=== PATIENT | male | born 1950 | race Caucasian/White ===

== ENCOUNTER 2017-11-17 16:44 | Inpatient (IN) | payer OTHER ==
[2017-11-17 20:28] VITALS: BMI 25.8
--- NOTE | 2017-11-17 21:05 | HP ---
CIWA Score - CIWA Score Nausea/Vomitin-No Nausea/No Vomiting Muscle Tremors: 2 Anxiety: 2 Agitation: 3 Paroxysmal Sweats: No Perspiration Orientation: 0-Oriented Tacttile Disturbances: 1-Very Mild Itch/Numbness Auditory Disturbances: 0-None Visual Disturbances: 0-None Headache: 0-None Present CIWA-Ar Total Score: 8 Admission ROS BHS - HPI Chief Complaint: alcohol withdrawal symptoms Allergies/Adverse Reactions: Allergies Allergy/AdvReac Type Severity Reaction Status Date / Time acetaminophen AdvReac Difficulty Verified 11/17/17 21:17 [From Tylenol-Codeine] Breathing codeine AdvReac Difficulty Verified 11/17/17 21:17 [From Tylenol-Codeine] Breathing History of Present Illness: 67 yo male with hx of alcohol dependence is here seeking detox for the first times. Patient was referred [facility] In assisted living Denies any prior detox. PMHX: HTN, hyperlipidemia, OA hands, abnormality of gait, depression, PTSD and insomnia. Denies suicidal / homicidal ideation or hx of suicide attempt . Exam Limitations: No Limitations - Ebola screening Have you traveled outside of the country in the last 21 days: No Have you had contact with anyone from an Ebola affected area: No Have you been sick,other than usual withdrawal symptoms: No Do you have a fever: No - Review of Systems Constitutional: Loss of Appetite, Changes in sleep, Unintentional Wgt. Loss (5 lbs) EENT: reports: No Symptoms Reported, Other (hx sx for left retinal detactment) Respiratory: reports: No Symptoms reported Cardiac: reports: No Symptoms Reported GI: reports: Poor Appetite, Poor Fluid Intake : reports: No Symptoms Reported Musculoskeletal: reports: Back Pain Integumentary: reports: No Symptoms Reported Neuro: reports: Unsteady Gait Endocrine: reports: Increased Thirst Psychiatric: reports: Orientated x3, Anxious Other Systems: Reviewed and Negative Patient History - Patient Medical History Hx Anemia: No Hx Asthma: No Hx Chronic Obstructive Pulmonary Disease (COPD): No Hx Cancer: No Hx Cardiac Disorders: No Hx Congestive Heart Failure: No Hx Hypertension: Yes Hx Hypercholesterolemia: No Hx Pacemaker: No HX Cerebrovascular Accident: Yes (3 years ago ) Hx Seizures: No Hx Dementia: No Hx Diabetes: No Hx Gastrointestinal Disorders: No Hx Liver Disease: No Hx Genitourinary Disorders: No Hx Sexually Transmitted Disorders: No Hx Renal Disease (ESRD): No (kidney stones) Hx Thyroid Disease: No Hx Human Immunodeficiency Virus (HIV): No (declines testing ) Hx Hepatitis C: No Hx Depression: Yes Hx Suicide Attempt: No Hx Bipolar Disorder: No Hx Schizophrenia: No Other Medical History: PTSD and Anxiety - Patient Surgical History Past Surgical History: Yes Hx Neurologic Surgery: No Hx Cataract Extraction: No Hx Cardiac Surgery: No Hx Lung Surgery: No Hx Breast Surgery: No Hx Breast Biopsy: No Hx Abdominal Surgery: No Hx Appendectomy: Yes Hx Cholecystectomy: No Hx Genitourinary Surgery: No Hx Section: No Hx Orthopedic Surgery: Yes (right knee replacement ) Other Surgical History: inguinal hernia b/l, Left retinal detachment laser sx - PPD History Previous Implant?: No Documented Results: Negative w/o proof PPD to be Administered?: Yes - Smoking Cessation Smoking history: Former smoker Have you smoked in the past 12 months: No Hx Chewing Tobacco Use: No (quit smoking 15 years ) Initiated information on smoking cessation: No - Substance & Tx. History Hx Alcohol Use: Yes Hx Substance Use: Yes Substance Use Type: Alcohol Hx Substance Use Treatment: No - Substances Abused Alcohol Route: Oral Frequency: 3-6 times per week Amount used: 2 x 6 pack beer Family Disease History - Family Disease History Family Disease History: [place]: Father (, 50s), Mother (, 60s), Other : Father, Mother Admission Physical Exam BHS - Vital Signs Vital Signs: Vital Signs - 24 hr 11/17/17 20:27 Temperature 97.6 F Pulse Rate 81 Respiratory 18 Rate Blood Pressure 132/70 - Physical General Appearance: Yes: Nourished, Appropriately Dressed, Thin, Anxious HEENTM: Yes: EOMI, Hearing grossly Normal, Normal ENT Inspection, Normocephalic , Normal Voice, GALE, Pharynx Normal, Tm's normal Respiratory: Yes: Chest Non-Tender, Lungs Clear, Normal Breath Sounds, No Respiratory Distress, No Accessory Muscle Use Neck: Yes: Within Normal Limits Breast: Yes: Breast Exam Deferred Cardiology: Yes: Regular Rhythm, Regular Rate Abdominal: Yes: Normal Bowel Sounds, Non Tender, Flat, Soft Genitourinary: Yes: Within Normal Limits Back: Yes: Normal Inspection Musculoskeletal: Yes: full range of Motion, Pelvis Stable, Other (use rollator walker for ambulation) Extremities: Yes: Normal Capillary Refill, Normal Inspection, Normal Range of Motion, Non-Tender Neurological: Yes: acid tank liner II-XII NML intact, Fully Oriented, Alert, Motor Strength 5/5, Depressed Affect Integumentary: Yes: Normal Color, Warm, Moist Lymphatic: Yes: Within Normal Limits - Diagnostic (1) Alcohol dependence with withdrawal Current Visit: Yes Status: Acute (2) Depression Current Visit: Yes Status: Acute Qualifiers: Depression Type: unspecified Qualified Code(s): F32.9 - Major depressive disorder, single episode, unspecified (3) Insomnia Current Visit: Yes Status: Chronic Qualifiers: Insomnia type: unspecified Qualified Code(s): G47.00 - Insomnia, unspecified (4) Gait abnormality Current Visit: Yes Status: Chronic (5) Hypertension Current Visit: Yes Status: Chronic Qualifiers: Hypertension type: essential hypertension Qualified Code(s): I10 - Essential (primary) hypertension (6) Hyperlipidemia Current Visit: Yes Status: Chronic Qualifiers: Hyperlipidemia type: unspecified Qualified Code(s): E78.5 - Hyperlipidemia , unspecified (7) Arthritis Current Visit: Yes Status: Chronic Cleared for Admission [facility] - Detox or Rehab [facility] Level of Care: Medically Supervised Detox Regimen/Protocol: Librium [facility] Breath Alcohol Content Breath Alcohol Content: 0.092 Urine Drug Screen - Results Drug Screen Negative: Yes
[2017-11-17] MEDS ORDERED: MAGNESIUM CITRATE 300 ML BOTTLE PO PRN (21:15)
[2017-11-17] MEDS ORDERED: P-EPHED 60MG/TRIPROLIDI 2.5MG TABLET PO PRN (21:15)
[2017-11-17] MEDS ORDERED: MENTHOL/PHENOL 1 EACH UD MM PRN (21:15)
[2017-11-17] MEDS ORDERED: IBUPROFEN 400 MG TABLET (FP) PO PRN (21:15)
[2017-11-17] MEDS ORDERED: ACETAMINOPHEN 325 MG TABLET (FP) PO PRN (21:15)
[2017-11-17] MEDS ORDERED: chlordiazePOXIDE HCL 25 MG CAPSULE PO PRN (21:15)
[2017-11-17] MEDS ORDERED: guaiFENesin/D-METHORPHAN HB 10 ML UNIT-DOSE CUPS PO PRN (21:15)
[2017-11-17] MEDS ORDERED: LOPERAMIDE HCL 2 MG CAPSULE PO PRN (21:15)
[2017-11-17] MEDS ORDERED: MAG HYDROX/AL HYDROX/SIMETH 30 ML UNIT-DOSE CUP PO PRN (21:15)
[2017-11-17] MEDS ORDERED: MAGNESIUM HYDROX 2400MG/30ML ORAL SUSPENSION 30 ML CUP PO PRN (21:15)
[2017-11-17] MEDS ORDERED: MELATONIN 5 MG TABLETS PO PRN (22:00)
[2017-11-17] MEDS: chlordiazePOXIDE HCL 25 MG CAPSULE PO SCH (23:15)
[2017-11-17] MEDS: THIAMINE HCL 100 MG TABLET (FP) PO SCH (23:16)
[2017-11-18] MEDS: chlordiazePOXIDE HCL 25 MG CAPSULE PO SCH ×4 (05:22→22:15)
--- NOTE | 2017-11-18 09:39 | EKG ---
Test Reason : Blood Pressure : / mmHG Vent. Rate : 076 BPM Atrial Rate : 076 BPM P-R Int : 134 ms QRS Dur : 088 ms QT Int : 416 ms P-R-T Axes : 062 061 -53 degrees QTc Int : 468 ms NORMAL SINUS RHYTHM WITH SINUS ARRHYTHMIA POSSIBLE INFERIOR INFARCT (CITED ON OR BEFORE 17-NOV-2017) ABNORMAL ECG WHEN COMPARED WITH ECG OF 17-NOV-2017 22:52, NO SIGNIFICANT CHANGE WAS FOUND Confirmed by RONAL PAYNE MD ([id number]) on 11/18/2017 9:38:48 AM Referred By: Confirmed By:RONAL PAYNE MD
--- NOTE | 2017-11-18 09:41 | CONSULT ---
[facility] Psychiatric Consult - Data Date of interview: 11/18/17 Admission source: [facility] Identifying data: This is 67 yo male, divorsed, mothe rof two, living with family, ambulates with walker, with long history of Alcohol dependence, is here seeking detox for the first time. Patient reports withdrawal symptoms, HTN , hyperlipidemia, OA hands, abnormality of gait, depression, PTSD and insomnia. Denies suicidal / homicidal ideation or hx of suicide attempt Substance Abuse History: - Smoking Cessation. Smoking history: Former smoker. Have you smoked in the past 12 months: No. Hx Chewing Tobacco Use: No (quit smoking 15 years ). Initiated information on smoking cessation: No. - Substance & Tx. History. Hx Alcohol Use: Yes. Hx Substance Use: Yes. Substance Use Type: Alcohol. Hx Substance Use Treatment: No. - Substances Abused. Alcohol. Route: Oral. Frequency: 3-6 times per week. Amount used : 2 x 6 pack beer Medical History: Ambulate with walker after R. Knee replacement, HTN, HYperlipidemia, Psychiatric History: Patient reports history of PTSD, Anxiety and Depression, reports taking prior to admission: TYrazodone 50mg po qhs. Zoloft 100mg poqd Physical/Sexual Abuse/Trauma History: Denies Additional Comment: TYrazodone 50mg po qhs. Zoloft 100mg poqd Mental Status Exam - Mental Status Exam Alert and Oriented to: Person Cognitive Function: Fair Patient Appearance: Unkempt Mood: Anxious Affect: Mood Congruent Patient Behavior: Cooperative Speech Pattern: Appropriate Voice Loudness: Mildly Soft/Quiet Thought Process: Circumstantial Thought Disorder: Being Controlled Hallucinations: Denies Suicidal Ideation: Denies Homicidal Ideation: Denies Insight/Judgement: Fair Sleep: Difficulty falling asleep Appetite: Weight loss Muscle strength/Tone: Mild Hypotonicity Gait/Station: Deferred Additional Comments: TYrazodone 50mg po qhs. Zoloft 100mg poqd Psychiatric Findings - Problem List ([place] 1, 2,3) (1) Alcohol-induced mood disorder Current Visit: Yes Status: Acute (2) Alcohol dependence with withdrawal Current Visit: Yes Status: Acute (3) Depression Current Visit: Yes Status: Acute Qualifiers: Depression Type: unspecified Qualified Code(s): F32.9 - Major depressive disorder, single episode, unspecified (4) Arthritis Current Visit: Yes Status: Chronic (5) Gait abnormality Current Visit: Yes Status: Chronic (6) Hyperlipidemia Current Visit: Yes Status: Chronic Qualifiers: Hyperlipidemia type: unspecified Qualified Code(s): E78.5 - Hyperlipidemia , unspecified (7) Hypertension Current Visit: Yes Status: Chronic Qualifiers: Hypertension type: essential hypertension Qualified Code(s): I10 - Essential (primary) hypertension (8) Insomnia Current Visit: Yes Status: Chronic Qualifiers: Insomnia type: unspecified Qualified Code(s): G47.00 - Insomnia, unspecified - Initial Treatment Plan Initial Treatment Plan: TYrazodone 50mg po qhs. Zoloft 100mg poqd
[2017-11-18 09:59] LABS: CHLORIDE 101 mmol/L (98-107); POTASSIUM 3.5 mmol/L (3.5-5.1); SODIUM 141 mmol/L (136-145)
[2017-11-18 10:10] LABS: HEMOGLOBIN 14.5 GM/dL (11.7-16.9); MCH 33.8 pg (25.7-33.7); MCHC 35.4 g/dl (32.0-35.9); MEAN CELL VOLUME 95.6 fl (80-96); MEAN PLT VOLUME 8.4 fl (7.5-11.1); PLATELET COUNT 245 K/MM3 (134-434); RBC 4.29 M/mm3 (4.00-5.60); RDW 12.9 % (11.9-15.9); WHITE BLOOD COUNT 9.3 K/mm3 (4.0-10.0)
[2017-11-18] MEDS: PRENATAL VITAMINS W/ FOLIC ACID TABLET (FP) PO SCH (10:11)
[2017-11-18] MEDS: SERTRALINE HCL 50 MG TABLET (FP) PO SCH (10:12)
[2017-11-18 11:08] LABS: ALBUMIN 3.5 g/dl (3.4-5.0); ALK PHOS 87 U/L (45-117); ANION GAP 10 (8-16); BILIRUBIN,TOTAL 1.2 mg/dL (0.2-1.0); BLOOD UREA NITROGEN 8 mg/dL (7-18); CALCIUM 8.8 mg/dL (8.5-10.1); CO2 30 mmol/L (21-32); CREATININE 0.7 mg/dL (0.7-1.3); GLUCOSE,RANDOM 93 mg/dL (74-106); SGOT/AST 11 U/L (15-37); SGPT/ALT 21 U/L (12-78); TOT PROT 6.7 g/dl (6.4-8.2)
--- NOTE | 2017-11-18 11:20 | PN ---
S CIWA - CIWA Score Nausea/Vomitin Muscle Tremors: 2 Anxiety: 1-Mildly Anxious Agitation: 1-Slight > Activity Paroxysmal Sweats: 3 Orientation: 0-Oriented Tacttile Disturbances: 1-Very Mild Itch/Numbness Auditory Disturbances: 0-None Visual Disturbances: 0-None Headache: 0-None Present CIWA-Ar Total Score: 10 S Progress Note (SOAP) Subjective: interrupted sleep, sweats, Objective: 11/18/17 11:16 Vital Signs Temperature 96.8 F L 11/18/17 09:36 Pulse Rate 91 H 11/18/17 09:36 Respiratory Rate 20 11/18/17 09:36 Blood Pressure 138/85 11/18/17 09:36 O2 Sat by Pulse Oximetry (%) Laboratory Tests 11/18/17 11/18/17 06:40 06:40 WBC 9.3 RBC 4.29 Hgb 14.5 Hct 41.0 MCV 95.6 MCH 33.8 H MCHC 35.4 RDW 12.9 Plt Count 245 MPV 8.4 Sodium 141 Potassium 3.5 Chloride 101 pending labs pt aox3 in nad ambulating with walker Assessment: 11/18/17 11:17 withdrawal sx's rt- tkr h/o cva Plan: cont. detox increase fluids f/up pending labs pitcher of water
[2017-11-18 14:25] LABS: URINE APPEARANCE CLEAR; URINE BILIRUBIN NEGATIVE (<2.0 mg/dL); URINE COLOR DKYELLOW; URINE GLUCOSE (UA) NEGATIVE (NEGATIVE); URINE KETONE NEGATIVE (NEGATIVE); URINE LEUK ESTERASE NEGATIVE (NEGATIVE); URINE NITRITE NEGATIVE (NEGATIVE); URINE PROTEIN NEGATIVE (NEGATIVE)
[2017-11-18] MEDS: THIAMINE HCL 100 MG TABLET (FP) PO SCH (22:15)
[2017-11-18] MEDS: traZODone HCL 50 MG TABLET (FP) PO SCH (22:15)
[2017-11-19] MEDS: chlordiazePOXIDE HCL 25 MG CAPSULE PO SCH ×3 (09:13→17:39)
[2017-11-19] MEDS: SERTRALINE HCL 50 MG TABLET (FP) PO SCH (11:14)
[2017-11-19] MEDS: PRENATAL VITAMINS W/ FOLIC ACID TABLET (FP) PO SCH (11:14)
--- NOTE | 2017-11-19 11:16 | PN ---
[facility] CIWA - CIWA Score Nausea/Vomitin-No Nausea/No Vomiting Muscle Tremors: None Anxiety: 0-No Anxiety, at Ease Agitation: 0-Normal Activity Paroxysmal Sweats: 2 Orientation: 0-Oriented Tacttile Disturbances: 0-None Auditory Disturbances: 0-None Visual Disturbances: 0-None Headache: 0-None Present CIWA-Ar Total Score: 2 S Progress Note (SOAP) Subjective: PATIENT ADMITTED FOR ETOH WITHDRAWALS ON 11/17/17. ALERT AND ORIENTED X 3. STATES " I FEEL GOOD JUST A LITTLE SWEATY". DENIES N/V/D, HEADACHES AND TREMORS. Objective: 11/19/17 11:14 Laboratory Tests 11/18/17 11/18/17 11/18/17 06:40 06:40 06:40 WBC 9.3 RBC 4.29 Hgb 14.5 Hct 41.0 MCV 95.6 MCH 33.8 H MCHC 35.4 RDW 12.9 Plt Count 245 MPV 8.4 Sodium 141 Potassium 3.5 Chloride 101 Carbon Dioxide 30 Anion Gap 10 BUN 8 Creatinine 0.7 Creat Clearance w eGFR > 60 Random Glucose 93 Calcium 8.8 Total Bilirubin 1.2 H AST 11 L ALT 21 Alkaline Phosphatase 87 Total Protein 6.7 Albumin 3.5 Urine Color Urine Appearance Urine pH Ur Specific [place] Urine Protein Urine Glucose (UA) Urine Ketones Urine Blood Urine Nitrite Urine Bilirubin Urine Urobilinogen Ur Leukocyte Esterase RPR Titer Nonreactive 11/18/17 11:00 WBC RBC Hgb Hct MCV MCH MCHC RDW Plt Count MPV Sodium Potassium Chloride Carbon Dioxide Anion Gap BUN Creatinine Creat Clearance w eGFR Random Glucose Calcium Total Bilirubin AST ALT Alkaline Phosphatase Total Protein Albumin Urine Color Dkyellow Urine Appearance Clear Urine pH 6.0 Ur Specific [place] 1.021 Urine Protein Negative Urine Glucose (UA) Negative Urine Ketones Negative Urine Blood Negative Urine Nitrite Negative Urine Bilirubin Negative Urine Urobilinogen 2.0 Ur Leukocyte Esterase Negative RPR Titer Laboratory Tests 11/18/17 11/18/17 11/18/17 06:40 06:40 06:40 WBC 9.3 RBC 4.29 Hgb 14.5 Hct 41.0 MCV 95.6 MCH 33.8 H MCHC 35.4 RDW 12.9 Plt Count 245 MPV 8.4 Sodium 141 Potassium 3.5 Chloride 101 Carbon Dioxide 30 Anion Gap 10 BUN 8 Creatinine 0.7 Creat Clearance w eGFR > 60 Random Glucose 93 Calcium 8.8 Total Bilirubin 1.2 H AST 11 L ALT 21 Alkaline Phosphatase 87 Total Protein 6.7 Albumin 3.5 Urine Color Urine Appearance Urine pH Ur Specific [place] Urine Protein Urine Glucose (UA) Urine Ketones Urine Blood Urine Nitrite Urine Bilirubin Urine Urobilinogen Ur Leukocyte Esterase RPR Titer Nonreactive 11/18/17 11:00 WBC RBC Hgb Hct MCV MCH MCHC RDW Plt Count MPV Sodium Potassium Chloride Carbon Dioxide Anion Gap BUN Creatinine Creat Clearance w eGFR Random Glucose Calcium Total Bilirubin AST ALT Alkaline Phosphatase Total Protein Albumin Urine Color Dkyellow Urine Appearance Clear Urine pH 6.0 Ur Specific [place] 1.021 Urine Protein Negative Urine Glucose (UA) Negative Urine Ketones Negative Urine Blood Negative Urine Nitrite Negative Urine Bilirubin Negative Urine Urobilinogen 2.0 Ur Leukocyte Esterase Negative RPR Titer Vital Signs Temperature 97 F L 11/19/17 09:32 Pulse Rate 83 11/19/17 09:32 Respiratory Rate 18 11/19/17 09:32 Blood Pressure 112/70 11/19/17 09:32 O2 Sat by Pulse Oximetry (%) OBJ: GENERAL: ALERT AND ORIENTED X 3. IN NAD. SKIN: WARM AND MOIST. CAR: S1S2 RESP: CTA BL 11/19/17 11:14 Assessment: 11/19/17 11:15 ETOH DETOX WITHDRAWAL SYNDROME Plan: CONTINUE CURRENT TREATMENT ORAL FLUIDS ENCOURAGED CONTINUE TO MONITOR CLINICALLY
[2017-11-19] MEDS: traZODone HCL 50 MG TABLET (FP) PO SCH (22:10)
[2017-11-19] MEDS: chlordiazePOXIDE 5 MG CAPSULE PO SCH (22:10)
[2017-11-19] MEDS: THIAMINE HCL 100 MG TABLET (FP) PO SCH (22:10)
[2017-11-20] MEDS: chlordiazePOXIDE 5 MG CAPSULE PO SCH ×3 (05:34→17:52)
[2017-11-20] MEDS: SERTRALINE HCL 50 MG TABLET (FP) PO SCH (10:15)
[2017-11-20] MEDS: PRENATAL VITAMINS W/ FOLIC ACID TABLET (FP) PO SCH (10:15)
--- NOTE | 2017-11-20 15:46 | PN ---
BHS Progress Note (SOAP) Subjective: pt here from Assisted living facility where he was "sneaking" in alcohol and drinking large quantities of beer. Doing well today- Objective: 11/20/17 15:44 Vital Signs - 24 hr 11/19/17 11/19/17 11/20/17 17:33 21:55 00:30 Temperature 98.1 F 97.7 F Pulse Rate 76 86 Respiratory 18 18 18 Rate Blood Pressure 127/74 152/72 11/20/17 11/20/17 11/20/17 03:30 07:35 09:52 Temperature 96.1 F L 98.1 F Pulse Rate 70 83 Respiratory 18 18 16 Rate Blood Pressure 134/80 143/90 11/20/17 14:00 Temperature 97.9 F Pulse Rate 77 Respiratory 20 Rate Blood Pressure 139/84 pt laying in bed, no complaints, grossly nl PE Assessment: 11/20/17 15:45 Continue alcohol detox Laboratory Tests 11/18/17 11/18/17 11/18/17 06:40 06:40 06:40 WBC 9.3 RBC 4.29 Hgb 14.5 Hct 41.0 MCV 95.6 MCH 33.8 H MCHC 35.4 RDW 12.9 Plt Count 245 MPV 8.4 Sodium 141 Potassium 3.5 Chloride 101 Carbon Dioxide 30 Anion Gap 10 BUN 8 Creatinine 0.7 Creat Clearance w eGFR > 60 Random Glucose 93 Calcium 8.8 Total Bilirubin 1.2 H AST 11 L ALT 21 Alkaline Phosphatase 87 Total Protein 6.7 Albumin 3.5 Urine Color Urine Appearance Urine pH Ur Specific [place] Urine Protein Urine Glucose (UA) Urine Ketones Urine Blood Urine Nitrite Urine Bilirubin Urine Urobilinogen Ur Leukocyte Esterase RPR Titer Nonreactive 11/18/17 11:00 WBC RBC Hgb Hct MCV MCH MCHC RDW Plt Count MPV Sodium Potassium Chloride Carbon Dioxide Anion Gap BUN Creatinine Creat Clearance w eGFR Random Glucose Calcium Total Bilirubin AST ALT Alkaline Phosphatase Total Protein Albumin Urine Color Dkyellow Urine Appearance Clear Urine pH 6.0 Ur Specific [place] 1.021 Urine Protein Negative Urine Glucose (UA) Negative Urine Ketones Negative Urine Blood Negative Urine Nitrite Negative Urine Bilirubin Negative Urine Urobilinogen 2.0 Ur Leukocyte Esterase Negative RPR Titer Plan: continue alcohol detox- pt is stable, discharge in 2 days
[2017-11-20] MEDS: traZODone HCL 50 MG TABLET (FP) PO SCH (22:10)
[2017-11-20] MEDS: chlordiazePOXIDE HCL 10 MG CAPSULE PO SCH (22:10)
[2017-11-20] MEDS: THIAMINE HCL 100 MG TABLET (FP) PO SCH (22:10)
[2017-11-21] MEDS: chlordiazePOXIDE HCL 10 MG CAPSULE PO SCH (05:28)
[2017-11-21 06:13] VITALS: BP 137/85; PULSE 73; TEMP 97.7
[2017-11-21] MEDS: SERTRALINE HCL 50 MG TABLET (FP) PO SCH (09:26)
[2017-11-21] MEDS: PRENATAL VITAMINS W/ FOLIC ACID TABLET (FP) PO SCH (09:26)
--- NOTE | 2017-11-21 10:04 | PN ---
S Progress Note (SOAP) Subjective: Denies any new complaint Objective: 11/21/17 10:02 Ambulates with a cane Vital Signs Temperature 97.7 F 11/21/17 06:00 Pulse Rate 73 11/21/17 06:00 Respiratory Rate 18 11/21/17 06:00 Blood Pressure 137/85 11/21/17 06:00 O2 Sat by Pulse Oximetry (%) Assessment: 11/21/17 10:03 Detox safely completed Plan: for discharge
--- NOTE | 2017-11-21 10:10 | DS ---
[facility] Detox Discharge Summary Admission Date: 11/17/17 Discharge Date: 11/21/17 - History Additional Comments: pt being discharged back to his assisted living facility Does not require meds refill as he said "they have it back there. They have nurses and aides too" Pertinent Past History: HTN Hyperlipidermia OA of hands abnormality of gait - Physical Exam Results Vital Signs: Vital Signs Temperature 97.7 F 11/21/17 06:00 Pulse Rate 73 11/21/17 06:00 Respiratory Rate 18 11/21/17 06:00 Blood Pressure 137/85 11/21/17 06:00 O2 Sat by Pulse Oximetry (%) Pertinent Admission Physical Exam Findings: withdrawal sx - Treatment Hospital Course: Detox Protocol Followed, Detoxed Safely, Responded well, Discharged Condition Good Patient has Accepted a Rehab Referral to: O/R at assisted living - Medication Discharge Medications: Ambulatory Orders Amlodipine Besylate [Norvasc -] 5 mg PO DAILY 11/17/17 Atorvastatin Ca [Lipitor] 10 mg PO HS 11/17/17 Folic Acid 1 mg PO DAILY 11/17/17 Hydrochlorothiazide 25 mg PO DAILY 11/17/17 Ramelteon [Rozerem] 8 mg PO HS 11/17/17 Sertraline HCl [Zoloft -] 100 mg PO DAILY #30 tablet 11/18/17 Trazodone HCl 50 mg PO HS #30 tablet 11/18/17 - Diagnosis (1) Alcohol-induced mood disorder Current Visit: Yes Status: Acute (2) Alcohol dependence with withdrawal Current Visit: Yes Status: Chronic (3) Arthritis Current Visit: Yes Status: Chronic (4) Depression Current Visit: Yes Status: Chronic Qualifiers: Depression Type: unspecified Qualified Code(s): F32.9 - Major depressive disorder, single episode, unspecified (5) Gait abnormality Current Visit: Yes Status: Chronic (6) Hyperlipidemia Current Visit: Yes Status: Chronic Qualifiers: Hyperlipidemia type: unspecified Qualified Code(s): E78.5 - Hyperlipidemia , unspecified (7) Hypertension Current Visit: Yes Status: Chronic Qualifiers: Hypertension type: essential hypertension Qualified Code(s): I10 - Essential (primary) hypertension (8) Insomnia Current Visit: Yes Status: Chronic Qualifiers: Insomnia type: unspecified Qualified Code(s): G47.00 - Insomnia, unspecified - AMA Did Patient Leave Against Medical Advice: No
--- NOTE | 2017-12-18 09:03 | EKG ---
Test Reason : Blood Pressure : / mmHG Vent. Rate : 070 BPM Atrial Rate : 070 BPM P-R Int : 134 ms QRS Dur : 088 ms QT Int : 422 ms P-R-T Axes : 033 016 -24 degrees QTc Int : 455 ms NORMAL SINUS RHYTHM POSSIBLE INFERIOR INFARCT (CITED ON OR BEFORE 17-NOV-2017) NONSPECIFIC ST ABNORMALITY Confirmed by NAUN RIOJAS MD ([id number]) on 12/18/2017 9:02:50 AM Referred By: Confirmed By:NAUN RIOJAS MD
== END 2017-11-21 09:43 | disposition home or self-care (01) | DRG 897 ==
LOC: YASAS 16:44 → Y6N 21:37
PROVIDERS: ADMIT Surgery; ATTEND Surgery
PROC: HZ2ZZZZ Detoxification Services for Substance Abuse Treatment (ICD-10-PCS; principal; 2017-11-17)
DX: F19.230 Other psychoactive substance dependence with withdrawal, uncomplicated (principal); F10.230 Alcohol dependence with withdrawal, uncomplicated; F10.24 Alcohol dependence with alcohol-induced mood disorder; F32.9 Major depressive disorder, single episode, unspecified; I10 Essential (primary) hypertension; E78.5 Hyperlipidemia, unspecified; G47.00 Insomnia, unspecified; M19.90 Unspecified osteoarthritis, unspecified site; R26.2 Difficulty in walking, not elsewhere classified; Z87.891 Personal history of nicotine dependence; Z86.73 Personal history of transient ischemic attack (TIA), and cerebral infarction without residual deficits; Z88.5 Allergy status to narcotic agent; Z88.6 Allergy status to analgesic agent
CPT/HCPCS: 36415; 80053; 81003; 85027; 86593; 93005; 93010